=== PATIENT | female | born 1960 | race Caucasian/White ===

== ENCOUNTER 2017-01-01 21:01 | Emergency (ER) | payer BC ==
[~2017-01-01] VITALS: Ht 160 cm; Wt 89.3 kg
[2017-01-01] MEDS ORDERED: NAPROXEN500 MG PO (23:36)
[2017-01-01 23:57] VITALS: BP 128/76
== END 2017-01-01 23:58 | disposition home or self-care (01) ==
LOC: EME 21:01
DX: S83.91XA Sprain of unspecified site of right knee, initial encounter (principal); X50.1XXA Overexertion from prolonged static or awkward postures, initial encounter; F17.200 Nicotine dependence, unspecified, uncomplicated
CPT/HCPCS: 73564; 99281; 99284